=== PATIENT | male | born 1995 | race African-American/Black ===

== ENCOUNTER 2017-06-05 11:24 | Emergency (ER) | payer SELFPAY ==
[~2017-06-05] VITALS: Ht 162.6 cm; Wt 67.0 kg
[2017-06-05 11:26] VITALS: BP 128/75; PULSE 70; RESP 15; TEMP 98.1; O2SAT 100
[2017-06-05] MEDS ORDERED: PENI500T PO (12:27)
[2017-06-05] MEDS ORDERED: IBUP-232 PO (12:27)
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
== END 2017-06-05 13:12 | disposition home or self-care (01) ==
LOC: NEPD 11:24
DX: K04.7 Periapical abscess without sinus (principal)
CPT/HCPCS: 99283

== ENCOUNTER 2017-07-08 12:00 | Emergency (ER) | payer SELFPAY ==
[~2017-07-08] VITALS: Ht 165.1 cm; Wt 70.0 kg
[~2017-07-08 12:00] MED LIST: IBUP-232 PO; PENI500T PO
[2017-07-08 12:10] VITALS: BP 128/64; PULSE 83; RESP 16; TEMP 98.7; O2SAT 99
[2017-07-08] MEDS ORDERED: PENICILLIN V POTASSIUM 500 MG TAB PO ONE (14:30)
[2017-07-08] MEDS ORDERED: IBUPROFEN 800 MG TAB PO ONE (14:30)
[2017-07-08] MEDS ORDERED: KETOROLAC TROMETHAMINE 60 MG/2 ML (IM) VIAL IM ONE (14:30)
--- NOTE | 2017-07-08 14:30 | PD ---
HPI Chief Complaint: Facial Pain or Swelling Time Seen by Provider: 14:19 Travel History International Travel<30 days: No Contact w/Intl Traveler<30days: No Traveled to known affect area: No History of Present Illness HPI 22-year-old -[place] male presents emergency department with left lower jaw pain and swelling since yesterday. Patient states he woke up this morning with a large swollen area to the left lower jaw. Pain is currently 7 out of 10. Patient denies sore throat or difficulty swallowing. Patient denies fever or chills. No previous history of dental abscess in the past. No known drug allergies. PFSH Past Medical History Medical History: Denies Significant Hx Immunizations Current: Yes Past Surgical History Surgical History: No Previous Surgery Social History Alcohol Use: No Tobacco Use: Yes (black and mild) Substance Use: No Allergies-Medications (Allergen,Severity, Reaction): Coded Allergies: No Known Allergies (Unverified , 07/08/17) Reported Meds & Prescriptions Reported Meds & Active Scripts Active No Active Prescriptions or Reported Medications Review of Systems Except as stated in HPI: all other systems reviewed are Neg General / Constitutional: No: Fever, Chills Eyes: No: Visual changes HENT: Positive: Dental Difficulties, No: Headaches, Vertigo, Lightheadedness, Sore Throat, Rhinitis, Rhinorrhea, Congestion, Nosebleed, Neck Stiffness, Neck Pain, Masses, Gingival Bleeding, Ear Discharge, Earache Cardiovascular: No: Chest Pain or Discomfort Respiratory: No: Shortness of Breath Gastrointestinal: No: Abdominal Pain Genitourinary: No: Dysuria Musculoskeletal: No: Pain Skin: No Rash Neurologic: No: Weakness Psychiatric: No: Depression Endocrine: No: Polydipsia Hematologic/Lymphatic: No: Easy Bruising Physical Exam Narrative GENERAL: Patient appears in no obvious distress per SKIN: Warm and dry. Normal color. Normal turgor. No rash HEAD: Atraumatic. Normocephalic. Patient has obvious swelling over the left lower jaw which is tender and indurated EYES: Pupils equal and round. No scleral icterus. No injection or drainage. ENT: No nasal bleeding or discharge. Mucous membranes pink and moist. Patient is missing the #19 tooth and this appears to be the area of infection. There is localized swelling and tenderness. There is no active drainage. TMs are clear. Pharynx is normal. Airways patent. NECK: Trachea midline. Supple and nontender without significant lymphadenopathy. No signs of Elvin's angina. CARDIOVASCULAR: Regular rate and rhythm. RESPIRATORY: No accessory muscle use. Clear to auscultation. Breath sounds equal bilaterally. MUSCULOSKELETAL: Extremities without clubbing, cyanosis, or edema. No obvious deformities. NEUROLOGICAL: Awake and alert. No obvious cranial nerve deficits. Motor grossly within normal limits. Five out of 5 muscle strength in the arms and legs. Normal speech. PSYCHIATRIC: Appropriate mood and affect; insight and judgment normal. Data Data Last Documented VS Vital Signs Date Time Temp Pulse Resp B/P (MAP) Pulse Ox O2 Delivery O2 Flow Rate FiO2 07/08/17 12:10 98.7 83 16 128/64 (85) 99 Orders Orders Penicillin V Potassium (Veetids) (07/08/17 14:30) Ibuprofen (Motrin) (07/08/17 14:30) [facility] Medical Decision Making Medical Screen Exam Complete: Yes Emergency Medical Condition: Yes Differential Diagnosis Dental pain. Dental caries. Dental abscess. Narrative Course Patient is given 1000 mg Pen-Vee K p.o. now Patient is given 60 mg Toradol IM Patient is continued on Pen-Vee K 500 mg 4 times daily 10 days. Patient is given ibuprofen 800 mg 3 times daily with food #30. Patient is to use hot compresses to the area, and return if symptoms worsen as discussed Patient should follow-up with a dentist as soon as possible. Diagnosis Primary Impression: Dental abscess Referrals: Dentist Patient Instructions: Dental Abscess (ED), General Instructions Additional Instructions: Patient is given 1000 mg Pen-Vee K p.o. now Patient is given 60 mg Toradol IM Patient is continued on Pen-Vee K 500 mg 4 times daily 10 days. Patient is given ibuprofen 800 mg 3 times daily with food #30. Patient is to use hot compresses to the area, and return if symptoms worsen as discussed Patient should follow-up with a dentist as soon as possible. Med/Other Pt SpecificInfo: Prescription(s) given Scripts No Active Prescriptions or Reported Meds Disposition: 01 DISCHARGE HOME Condition: Stable Clyde Rutledge Jul 08, 2017 14:30
[2017-07-08] MEDS ORDERED: PENI500T PO (14:33)
[2017-07-08] MEDS ORDERED: IBUP1TAB7 PO (14:33)
== END 2017-07-08 15:01 | disposition home or self-care (01) ==
LOC: NEPD 12:00
DX: K04.7 Periapical abscess without sinus (principal); F17.290 Nicotine dependence, other tobacco product, uncomplicated
CPT/HCPCS: 96372; 99283; J1885